=== PATIENT | male | born 1980 | race Hispanic/Latino ===

== ENCOUNTER 2024-05-22 03:19 | Emergency (ER) | payer BC | END 2024-05-22 03:58 | disposition home or self-care (01) | LOC: ERS 03:19 | DX: Z02.89 Encounter for other administrative examinations (principal); S39.012A Strain of muscle, fascia and tendon of lower back, initial encounter; V89.2XXA Person injured in unspecified motor-vehicle accident, traffic, initial encounter; W22.11XA Striking against or struck by driver side automobile airbag, initial encounter | CPT/HCPCS: 99284 ==